=== PATIENT | male | born 1995 | race African-American/Black ===

== ENCOUNTER 2022-01-13 14:13 | Emergency (ER) | payer OTHER ==
[~2022-01-13] VITALS: Ht 177.8 cm; Wt 68.0 kg
[2022-01-13 20:06] VITALS: BP 118/64
== END 2022-01-13 20:07 | disposition home or self-care (01) ==
LOC: ER 14:13
DX: J10.1 Influenza due to other identified influenza virus with other respiratory manifestations (principal); B34.9 Viral infection, unspecified; Z20.822 Contact with and (suspected) exposure to COVID-19; Z88.8 Allergy status to other drugs, medicaments and biological substances
CPT/HCPCS: 87426; 87804; 99283

== ENCOUNTER 2022-12-10 18:59 | Emergency (ER) | payer OTHER | END 2022-12-10 20:18 | disposition left against medical advice (07) | LOC: ER 18:59 | DX: Z53.21 Procedure and treatment not carried out due to patient leaving prior to being seen by health care provider (principal) ==